=== PATIENT | female | born 1955 | race Two or more races ===

== ENCOUNTER 2021-03-09 11:31 | Outpatient (REF) | payer OTHER, SELFPAY | END 2021-03-09 11:32 | disposition home or self-care (01) | LOC: HO.LAB 11:31 | PROVIDERS: Visit Provider Internal Medicine | DX: Z20.822 Contact with and (suspected) exposure to COVID-19 (principal) | CPT/HCPCS: C9803; U0003; U0005 ==

== ENCOUNTER 2022-03-19 22:12 | Emergency (ER) | payer MEDICAID, SELFPAY ==
[2022-03-19 23:02] VITALS: BP 162/85; PULSE 76; RESP 21; TEMP 37.1; O2SAT 99; BMI 29.9
== END 2022-03-20 01:15 | disposition left against medical advice (07) ==
LOC: HO.ED 03-20 00:52
PROVIDERS: Emergency Provider Emergency Medicine
DX: M25.562 Pain in left knee (principal)
CPT/HCPCS: 99281

== ENCOUNTER 2022-03-20 14:10 | Emergency (ER) | payer SELFPAY ==
--- NOTE | ~2022-03-20 | XR_ITS ---
EXAMINATION: LEFT KNEE AND LEFT SHOULDER CLINICAL INFORMATION: Fall. COMPARISON: None TECHNIQUE: 4 views left knee. 4 views left shoulder. FINDINGS: LEFT KNEE: The tricompartment joint space is maintained normal. No bony erosive changes, loose bodies or suprapatellar joint effusion. No visible acute fracture or dislocation. LEFT SHOULDER: The glenohumeral and AC joint space is maintained normal. No visible acute fracture, dislocation or subluxation seen. No abnormal joint effusion. The soft tissues are normal. XR/XR knee LT 2V IMPRESSION: Unremarkable left knee exam. Unremarkable left shoulder joint exam.
--- NOTE | ~2022-03-20 | XR_ITS ---
EXAMINATION: LEFT KNEE AND LEFT SHOULDER CLINICAL INFORMATION: Fall. COMPARISON: None TECHNIQUE: 4 views left knee. 4 views left shoulder. FINDINGS: LEFT KNEE: The tricompartment joint space is maintained normal. No bony erosive changes, loose bodies or suprapatellar joint effusion. No visible acute fracture or dislocation. LEFT SHOULDER: The glenohumeral and AC joint space is maintained normal. No visible acute fracture, dislocation or subluxation seen. No abnormal joint effusion. The soft tissues are normal. XR/XR shoulder LT min 2V IMPRESSION: Unremarkable left knee exam. Unremarkable left shoulder joint exam.
[2022-03-20 15:19] VITALS: BP 194/94; PULSE 69; RESP 20; TEMP 36.6; O2SAT 99; BMI 29.9
[2022-03-20] MEDS: Ibuprofen 600 MG TABLET PO (15:26)
--- NOTE | 2022-03-20 17:02 | ED.FALL ---
HPI - Fall General Chief Complaint: Fall Stated Complaint: fall 03/18/22 Time Seen by Provider: 03/20/22 16:58 Source: patient and air transportation provider Mode of arrival: ambulatory Limitations: no limitations History of Present Illness HPI Narrative: 66-year-old female with history of hypertension presents to the ER for evaluation of left shoulder pain and left knee pain after she tripped and fell over shoes while shopping at [employer] 3 days ago. She denies hitting her head or losing consciousness. She fell onto her left side sustaining injury to her left shoulder and left knee. She denies being on anticoagulation at home. She is ambulatory with some soreness in the left knee. She is able to lift her left arm to the level of her shoulder but hurts when she goes further than that. She also reports some tingling sensation in her left hand since the fall. Denies any weakness. No neck pain. MD complaint: fall Onset (ago): day(s) (3) Fall from: standing Fall witnessed: yes, by family Place fall occurred: other ([facility]) Loss of consciousness: none Prolonged down time: no Symptoms prior to fall: none Context: tripped/slipped Location of injury - extremities: left: shoulder and knee Quality: aching Associated symptoms (after fall): denies Related Data Previous Rx's Medication Instructions Recorded ibuprofen 600 mg tablet 600 mg PO Q8H PRN pain #20 tabs 03/20/22 lidocaine 5 % topical patch 1 patch topical DAILY #15 ea 03/20/22 Allergies Allergy/AdvReac Type Severity Reaction Status Date / Time No Known Allergies Allergy Verified 03/20/22 15:19 Review of Systems Review of Systems: Constitutional: No Fever, No Chills ENT/Mouth: No sore throat Cardiovascular: No Chest Pain, No SOB Gastrointestinal: No Nausea, No Vomiting, No Diarrhea, No abdominal Pain Musculoskeletal: + joint pain, + Myalgias Skin: No Skin Lesions, No rash Neuro: No Weakness, No Numbness, +Tingling, No Dizziness, No Headache Heme/Lymph: No Bruising, No Lymphadenopathy PMFSH Social History Social History Advance Directives: No Advance Directives Information Provided: No Physical Exam Vital Signs: Vital Signs: Last Vital Signs Temp 97.9 F 03/20/22 15:19 Pulse 69 03/20/22 15:19 Resp 20 03/20/22 15:19 BP 183/101 H 03/20/22 17:19 Pulse Ox 99 03/20/22 15:19 O2 Del Method 03/20/22 17:19 BMI result Body Mass Index 29.9 Appearance: Alert. Oriented X3. No acute distress. HEENT: normal inspection CVS: Normal heart rate and rhythm. Pulses normal. Respiratory: No respiratory distress. Skin: Skin warm and dry. Normal skin color. Normal skin turgor. No rashes. Extremities: normal inspection x4. normal passive ROM of the left shoulder to 90 degrees and discomfort witih full abduction to 180 degrees. tenderness to the AC joint without palpable separation. no posterior shoulder tenderness. left knee with tenderness to the medial joint line, pain with flexion beyond 90 degrees. no joint laixty appreciated. no swelling. Neuro: Oriented X 3. No motor deficit. No sensory deficit. steady gait. equal police magistrate strength bilaterally. Course Course Course Narrative: 66-year-old female presents to the ER for evaluation of left shoulder and left knee pain status post mechanical fall 3 days ago at a shopping store. Her x-rays today are unremarkable, no traumatic injuries. She reports some tingling sensation in her left hand since the fall, this could be due to cervical radiculopathy. No neurologic deficits. Only started after the fall. She has equal police magistrate strength bilaterally. She is ambulating well. She lives in [facility] and has a primary care doctor there, she also has an orthopedic provider there. She goes home in 1 week. At this time comfortable with DC with supportive care, NSAID for pain control, ice, rest. At this time she is stable for discharge home with supportive care. BP noted to be significantly elevated today 190/94. She is compliant with her home atenolol. Repeat blood pressure 180/90. No headache, chest pain, vision changes. She is stable for discharge home. Discharge Plan Discharge Clinical Impression: Acute pain of left shoulder, Acute pain of left knee Patient Disposition: Home, Self-Care Instructions: Knee Pain (ED), Shoulder Pain (ED) Additional Instructions: Your x-rays today were normal. No evidence of any fractures. Recommend taking the prescribed anti-inflammatory medications and using the prescribed pain patches as needed. If you have ongoing pain and symptoms when you get back home to the [facility], recommend following up with your primary care for further evaluation. Tus radiograf?as de hoy fueron normales. No hay evidencia de ninguna fractura. Recomiende roshan los medicamentos antiinflamatorios recetados y usar los parches para el dolor recetados seg?n sea necesario. Si tiene dolor y s?ntomas continuos cuando regrese a [place] [employer] [place], recomiende hacer un seguimiento con lindsey atenci?n primaria para burton evaluaci?n adicional. Prescriptions: New ibuprofen 600 mg tablet 600 mg PO Q8H PRN (Reason: pain) Qty: 20 0RF lidocaine 5 % adhesive patch,medicated 1 patch topical DAILY Qty: 15 0RF Rx Instructions: leave on most painful area for up to 12 hrs Interventions: ED Discharge Assessment Last Done: 03/20/22 17:40 Discharge Date/Time: 03/20/22 17:40 Print Language: Lao
[2022-03-20 17:19] VITALS: BP 183/101
== END 2022-03-20 17:40 | disposition home or self-care (01) ==
PROVIDERS: Emergency Provider Emergency Medicine
DX: M25.512 Pain in left shoulder (principal); M25.562 Pain in left knee; Z79.899 Other long term (current) drug therapy
CPT/HCPCS: 73030; 73560; 99283